=== PATIENT | female | born 1955 | race Caucasian/White ===

== ENCOUNTER 2020-03-02 14:48 | Emergency (ER) | payer BC ==
--- NOTE | 2020-03-10 08:48 | ERPHSYRPT ---
- History of Present Illness Time Seen by Provider: 03/02/20 15:00 Source: patient Exam Limitations: no limitations Physician History: This is a 64-year-old white female who has a history of bronchitis and COPD who presents with worsening shortness of breath and mild cough over the last few days. Patient contacted her primary care provider's office who then contacted Dr. Lassiter. He is overseeing the [address] inpatient care. He recommended that the patient be tested in a drive up capacity in the emergency room [place] area. Her tested positive for COVID-19. Patient's symptoms are chronic however, she states that symptoms are worse than usual. Patient states that her oxygen saturations normally run around 93 or 94%. However this morning she felt as though she had a low-grade fever and her oxygen saturations were at 91%. He states that she does not feel all that bad but given the fact her was recently hospitalized for COVID-19 infection and there was a change in her symptoms she thought she would see her primary care provider. It was agreed upon with all parties that the patient would be tested in a drive up capacity and undergo a medical screening exam. Timing/Duration: today (This morning the patient's oxygen saturation was slightly lower than typical for her and she thought she might of had a low- grade fever.), day(s) Severity: mild Associated Symptoms: shortness of breath (Chronic), fever (Subjective), No chest pain Allergies/Adverse Reactions: nitrofurantoin [From Macrobid] Allergy (Verified 01/29/16 06:14) Nausea nitrofurantoin macrocrystalline [From Macrobid] Allergy (Verified 01/29/16 06:14 ) Nausea Home Medications: ALPRAZolam [Xanax 0.5 mg] 0.5 mg PO HS 01/24/16 [History] Fluoxetine HCl [Prozac] 40 mg PO DAILY 01/24/16 [History] Glipizide Xl 5 mg [Glucotrol Xl 5 MG] 5 mg PO DAILY 01/24/16 [History] Metformin HCl 850 mg [Glucophage 850 MG] 850 mg PO DAILY 01/24/16 [History ] Verapamil HCl Sr 240 mg [Isoptin S.r. 240 mg] 240 mg PO DAILY 01/24/16 [ History] Albuterol Common Canister [Proventil Common Canister] 1 puff IH [id number] PRN 01/29/16 [History] Ascorbate Calcium [Vitamin C] 500 mg PO DAILY 01/29/16 [History] Fluticasone/Salmeterol [Advair 250-50 Diskus] 1 each IH DAILY 01/29/16 [History] Glucosam/MSM/Chond/Pwh335/Hyal [Vygfbtrzaxz-Pmubsttnlzp-TZM Tb] 1 each PO DAILY 01/29/16 [History] Loratadine/Pseudoephedrine [Alavert D-12 Allergy-Sinus Tab] 1 each PO DAILY 06/08 [History] Meloxicam [Mobic] 15 mg PO DAILY 01/29/16 [History] Multivit with Calcium,Iron,Min [Womens Multiple Vitamins] 1 each PO DAILY [History] Omeprazole 20 MG [Prilosec 20 mg] 20 mg PO DAILY 01/29/16 [History] Pravastatin Sodium [Pravachol] 20 mg PO QHS 01/29/16 [History] Travel Risk - International Travel Have you traveled outside of the country in past 3 weeks: No (N) Have you or anyone close to you been diagnosed with or: Yes Do your reside in a community with a known COVID-19 case?: Yes If Yes where:: [place] - Coronavirus Screening Has patient experienced Coronavirus symptoms: Yes Symptoms experienced: respiratory symptoms (i.e.Cought,shortness of breath) - Review of Systems Constitutional: Fever (Subjective) Eyes: No Symptoms Ears, Nose, & Throat: No Symptoms Respiratory: Cough, Dyspnea (Mild) Cardiac: No Symptoms Abdominal/Gastrointestinal: No Symptoms Genitourinary Symptoms: No Symptoms Musculoskeletal: No Symptoms Skin: No Symptoms Neurological: No Symptoms Psychological: No Symptoms Endocrine: No Symptoms Hematologic/Lymphatic: No Symptoms Immunological/Allergic: No Symptoms All Other Systems: Reviewed and Negative - Past Medical History Pertinent Past Medical History: Yes Neurological History: No Pertinent History ENT History: No Pertinent History Cardiac History: High Cholesterol, Hypertension Respiratory History: Asthma, COPD Endocrine Medical History: Diabetes Type II Musculoskeletal History: Arthritis GI Medical History: GERD, Gallbladder Disease, Hernia History: No Pertinent History Psycho-Social History: Anxiety Female Reproductive Disorders: No Pertinent History - Past Surgical History Past Surgical History: Yes Neuro Surgical History: No Pertinent History Cardiac: No Pertinent History Respiratory: No Pertinent History Gastrointestinal: No Pertinent History Genitourinary: No Pertinent History Musculoskeletal: Orthopedic Surgery Female Surgical History: Hysterectomy Other Surgical History: trigger finger x2,ulner nerve repair,carpel tunnel x2, LT wrist sugery, skin graft RT index finger - Social History Smoking Status: Former smoker Exposure to second hand smoke: No Drug Use: none - Physical Exam General Appearance: no apparent distress, alert, anxiety Eye Exam: PERRL/EOMI, eyes nml inspection Ears, Nose, Throat Exam: normal ENT inspection, moist mucous membranes Neck Exam: normal inspection, non-tender, supple, full range of motion Respiratory Exam: normal breath sounds, lungs clear, airway intact, No chest tenderness, No respiratory distress Cardiovascular Exam: regular rate/rhythm, normal heart sounds, normal peripheral pulses Gastrointestinal/Abdomen Exam: No tenderness Pelvic Exam: not done Rectal Exam: not done Neurologic Exam: alert, oriented x 3, cooperative, field representative II-XII nml as tested Skin Exam: normal color, warm, dry Lymphatic Exam: No adenopathy SpO2 Interpretation: borderline oxygenation O2 Delivery: Room Air - Course Nursing assessment & vital signs reviewed: Yes Lab/Rad Data: Laboratory Results 03/02/20 Range/Units 14:45 COVID-19 ([facility]ANDRE) SEE SEPARATE REPORT - Progress Progress: unchanged Progress Note: 03/10/20 08:50 On February at approximately 3:30 PM I spoke with Dr. Lassiter regarding this patient. We all agreed that the patient would undergo a medical screening exam and be tested for the COVID-19 virus. The patient's primary concern was to find out whether or not she has a positive test. Her , was recently discharged from the hospital with respiratory symptoms positive COVID-19 blood test. Patient states that her symptoms had changed and so she wanted to be evaluated and have the test drawn. Patient is aware that if her symptoms worsen that she is to come to the emergency department for full work-up. At this time Dr. Lassiter, myself and the patient are all comfortable with her understanding of her discharge instructions and in understanding that her symptoms are fairly mild at this time. She is to increase her nebulizer treatments to every 4 hours while awake when she is at home. Discussed with : Bree Counseled pt/family regarding: diagnosis, need for follow-up - Departure Departure Disposition: Home Clinical Impression: Encounter for medical screening examination Condition: Stable Critical Care Time: No Referrals: BERNARDINO GROVES [Primary Care Provider] - Additional Instructions: Continue using your medication as prescribed. Increase your home nebulizer treatments of albuterol to every 4 hours while awake for the next 48 hours. Return to the emergency department if your symptoms worsen.
== END 2020-03-02 15:20 | disposition home or self-care (01) ==
LOC: LAB 14:48 → ED 14:48 → EDSTATUS 16:31
DX: R05 Cough (principal); R50.9 Fever, unspecified; Z20.828 Contact with and (suspected) exposure to other viral communicable diseases
CPT/HCPCS: 99000; 99281; U0001